=== PATIENT | female | born 1945 | race Caucasian/White ===

== ENCOUNTER 2019-04-13 15:59 | Emergency (ER) | payer MEDICARE ==
--- NOTE | 2019-04-13 16:21 | UC ---
Respiratory Complaint HPI - HPI Summary HPI Summary: 73 yo female presents with cough. She tells me that on 04/10 she developed a sore throat and was coughing with mucus production. Since that time her throat has improved, but her cough continues. She feels tired and achy all over. She has felt feverish, but has not taken her temperature - has taken tylenol for her discomfort with good intermittent relief. She returned from [place] on and states her is sick with similar symptoms. She does not smoke. Denies sinus symptoms, sob, chest pain, abdominal pain, dysuria. - History of Current Complaint Stated Complaint: COUGH, SORE THROAT Time Seen by Provider: 04/13/19 16:20 Hx Obtained From: Patient Onset/Duration: Sudden Onset Severity Initially: Moderate Severity Currently: Moderate Pain Intensity: 6 Pain Scale Used: 0-10 Numeric - Allergies/Home Medications Allergies/Adverse Reactions: Allergies Allergy/AdvReac Type Severity Reaction Status Date / Time No Known Allergies Allergy Verified 04/13/19 16:20 Home Medications: Home Medications Naproxen Sodium [Aleve] 440 mg PO Q12HR PRN 04/13/19 [History Confirmed 04/13/19 ] PMH/Surg Hx/FS Hx/Imm Hx GI/ History: Gastroesophageal Reflux - Surgical History Surgical History: None - Family History Known Family History: Positive: Non-Contributory - Social History Lives: With Family Alcohol Use: Occasionally Substance Use Type: None Smoking Status (MU): Never Smoked Tobacco Review of Systems All Other Systems Reviewed And Are Negative: No Constitutional: Positive: Fever, Fatigue, Other - Body aches Skin: Positive: Negative Eyes: Positive: Negative ENT: Positive: Sore Throat Respiratory: Positive: Cough Cardiovascular: Positive: Negative Gastrointestinal: Positive: Negative Genitourinary: Positive: Negative Neurovascular: Positive: Negative Neurological: Positive: Negative Psychological: Positive: Negative Physical Exam - Summary Physical Exam Summary: GENERAL: NAD. WDWN. No pain distress. SKIN: No rashes, sores, lesions, or open wounds. HEENT: Head: AT/NC Eyes: EOM intact. Conjunctiva clear without inflammation or discharge. Ears: Hearing grossly normal. TMs intact, no bulging, erythema, or edema. Nose: Nasal mucosa pink and moist. NTTP maxillary and frontal sinus. Throat: Posterior oropharynx without exudates, erythema, or tonsillar enlargement. Uvula midline. NECK: Supple. Nontender. No lymphadenopathy. CHEST: CTAB. No accessory muscle use. Breathing comfortably and in no distress. CV: RRR. Pulses intact. Cap refill <2seconds NEURO: Alert. PSYCH: Age appropriate behavior. Triage Information Reviewed: Yes Vital Signs: Vital Signs: Temp Pulse Resp BP Pulse Ox 101.0 F 84 18 147/84 96 04/13/19 16:22 04/13/19 16:22 04/13/19 16:22 04/13/19 16:22 04/13/19 16:22 Laboratory Tests 04/13/19 04/13/19 16:41 16:43 Influenza A (Rapid) Negative Influenza B (Rapid) Negative Group A Strep Rapid Negative Vital Signs Reviewed: Yes Respiratory Course/Dx - Course Course Of Treatment: POC strep and flu negative. Discussed viral vs bacterial with the pt and she prefers to be on anbx at this time. - Differential Dx/Diagnosis Provider Diagnosis: Cough Discharge ED - Sign-Out/Discharge Documenting (check all that apply): Patient Departure All imaging exams completed and their final reports reviewed: No Studies - Discharge Plan Condition: Stable Disposition: HOME Prescriptions: Amoxicillin PO (*) [Amoxicillin 875 MG (*)] 875 mg PO BID #14 tab Patient Education Materials: Sinusitis (ED), Acute Cough (ED) Referrals: Alireza Merlos MD [Primary Care Provider] - Additional Instructions: If you develop a fever, shortness of breath, chest pain, new or worsening symptoms - please call your PCP or go to the ED immediately. Your blood pressure was high at todays visit. Please see your primary provider within 4 weeks for recheck and re-evaluation. - Billing Disposition and Condition Condition: STABLE Disposition: Home
[2019-04-13 16:28] VITALS: BP 147/84
[2019-04-13] MEDS ORDERED: Acetaminophen TAB* 325 MG PO ONE (16:32)
[2019-04-13 16:57] LABS: Influenza A Molecular NEGATIVE (Negative); Influenza B Molecular NEGATIVE (Negative)
[2019-04-13] MEDS ORDERED: Amoxicillin PO (*) 500 MG CAP PO ONE (17:06)
== END 2019-04-13 17:20 | disposition home or self-care (01) ==
LOC: UCEAST 15:59
DX: R05 Cough (principal); J02.9 Acute pharyngitis, unspecified; K21.9 Gastro-esophageal reflux disease without esophagitis
CPT/HCPCS: 87651; 99212; A9270-GY; G0463